=== PATIENT | male | born 1945 | race Native Hawaiian/Other Pacific Islander ===

== ENCOUNTER 2016-11-04 11:55 | Emergency (ER) | payer OTHER, MEDICARE ==
[~2016-11-04] VITALS: Ht 182.9 cm; Wt 77.1 kg
[~2016-11-04 11:55] MED LIST: ACIPHEX20 MG PO; ALBU90AE13 INH; CHONDROITIN PO; CINNAMON500 M1 PO; CLONIDINE0.3 MG PO; DIOVAN HC1 PO; FISH OIL1000 M2 PO; FLAXSEED OIL1200 MG PO; FLUTMIS14 INH; FORTAMET1000 MG PO; GARLIC1000 MG PO; GLUCOSAMINE PO; MINO10TA PO; SINGULAIR10 MG PO; SPIRIVA IN; VICTOZA18 MG/3 ML SC
[2016-11-04 13:01] LABS: PLATELET COUNT 349 K/uL (142-355)
[2016-11-04 13:12] LABS: POTASSIUM 3.9 mmol/L (3.6-5.2); SODIUM 130 mmol/L (136-145)
[2016-11-04 14:09] VITALS: BP 112/69; TEMP 98
== END 2016-11-04 14:09 | disposition home or self-care (01) ==
LOC: ED 11:55
DX: J44.9 Chronic obstructive pulmonary disease, unspecified (principal); I10 Essential (primary) hypertension
CPT/HCPCS: 80053; 85027; 93005; 99283

== ENCOUNTER 2016-12-10 12:58 | Outpatient (CLI) | payer OTHER, MEDICARE ==
[2016-12-10 14:00] LABS: POTASSIUM 4.2 mmol/L (3.6-5.2); SODIUM 130 mmol/L (136-145)
[2016-12-10 14:22] LABS: PLATELET COUNT 371 K/uL (142-355)
== END 2016-12-10 14:00 | disposition home or self-care (01) ==
LOC: LAB 12:58
PROVIDERS: Nurse Practitioner Family
DX: E11.9 Type 2 diabetes mellitus without complications (principal); I10 Essential (primary) hypertension
CPT/HCPCS: 80053; 80061; 83036; 84439; 84443; 85027

== ENCOUNTER 2017-01-14 14:05 | Outpatient (CLI) | payer OTHER, MEDICARE ==
[2017-01-14 14:34] LABS: POTASSIUM 4.9 mmol/L (3.6-5.2); SODIUM 129 mmol/L (136-145)
== END 2017-01-14 15:05 | disposition home or self-care (01) ==
LOC: LAB 14:05
PROVIDERS: Nurse Practitioner Family
DX: E87.1 Hypo-osmolality and hyponatremia (principal); E11.9 Type 2 diabetes mellitus without complications
CPT/HCPCS: 80048

== ENCOUNTER 2017-01-26 16:25 | Emergency (ER) | payer OTHER, MEDICARE ==
[~2017-01-26] VITALS: Ht 182.9 cm; Wt 74.8 kg
[2017-01-26 16:30] VITALS: TEMP 99.3
[2017-01-26 17:33] LABS: PLATELET COUNT 284 K/uL (142-355)
[2017-01-26 17:36] LABS: POTASSIUM 4.8 mmol/L (3.6-5.2); SODIUM 128 mmol/L (136-145)
[2017-01-26 18:11] VITALS: BP 125/80
== END 2017-01-26 18:28 | disposition home or self-care (01) ==
LOC: ED 16:25
DX: L03.116 Cellulitis of left lower limb (principal)
CPT/HCPCS: 36415; 80053; 85027; 96372; 99283; J0696

== ENCOUNTER 2017-05-14 13:48 | Outpatient (CLI) | payer OTHER, MEDICARE ==
[2017-05-14 14:17] LABS: PLATELET COUNT 337 K/uL (142-355)
[2017-05-14 14:36] LABS: POTASSIUM 4.1 mmol/L (3.6-5.2); SODIUM 132 mmol/L (136-145)
== END 2017-05-14 19:10 | disposition home or self-care (01) ==
LOC: LAB 13:48
PROVIDERS: Nurse Practitioner Family
DX: I73.89 Other specified peripheral vascular diseases (principal); I10 Essential (primary) hypertension; E87.1 Hypo-osmolality and hyponatremia; E11.9 Type 2 diabetes mellitus without complications; E55.9 Vitamin D deficiency, unspecified; Z79.899 Other long term (current) drug therapy; Z51.81 Encounter for therapeutic drug level monitoring
CPT/HCPCS: 80053; 80061; 82306; 82607; 83036; 84436; 84443; 85027

== ENCOUNTER 2017-05-26 23:27 | Emergency (ER) | payer OTHER, MEDICARE ==
[~2017-05-26] VITALS: Ht 182.9 cm; Wt 75.8 kg
[2017-05-27 01:10] VITALS: BP 112/71; TEMP 98.7
== END 2017-05-27 01:10 | disposition home or self-care (01) ==
LOC: ED 23:27
DX: R03.0 Elevated blood-pressure reading, without diagnosis of hypertension (principal)

== ENCOUNTER 2017-12-17 13:51 | Outpatient (CLI) | payer OTHER, MEDICARE ==
[2017-12-17 14:36] LABS: POTASSIUM 4.3 mmol/L (3.6-5.2)
[2017-12-17 14:43] LABS: PLATELET COUNT 332 K/uL (142-355)
== END 2017-12-17 18:18 | disposition home or self-care (01) ==
LOC: LAB 13:51
PROVIDERS: Nurse Practitioner Family
DX: I10 Essential (primary) hypertension (principal); I73.89 Other specified peripheral vascular diseases; R06.02 Shortness of breath; J44.9 Chronic obstructive pulmonary disease, unspecified; Z79.899 Other long term (current) drug therapy; Z51.81 Encounter for therapeutic drug level monitoring; E11.9 Type 2 diabetes mellitus without complications
CPT/HCPCS: 80053; 80061; 82306; 82607; 83036; 84436; 84443; 85027

== ENCOUNTER 2018-05-01 18:05 | Outpatient (CLI) | payer OTHER, MEDICARE ==
[2018-05-01 18:35] LABS: PLATELET COUNT 395 K/uL (142-355)
[2018-05-01 19:09] LABS: POTASSIUM 4.2 mmol/L (3.6-5.2); SODIUM 132 mmol/L (136-145)
== END 2018-05-01 22:58 | disposition home or self-care (01) ==
LOC: LAB 18:05
PROVIDERS: Nurse Practitioner Family
DX: I10 Essential (primary) hypertension (principal); I73.89 Other specified peripheral vascular diseases; E11.9 Type 2 diabetes mellitus without complications; J44.9 Chronic obstructive pulmonary disease, unspecified; Z79.899 Other long term (current) drug therapy; Z51.81 Encounter for therapeutic drug level monitoring
CPT/HCPCS: 80053; 80061; 83036; 84153; 84436; 84443; 85027

== ENCOUNTER 2018-05-12 13:51 | Outpatient (CLI) | payer OTHER, MEDICARE ==
[2018-05-12 14:25] LABS: PLATELET COUNT 376 K/uL (142-355)
[2018-05-12 14:46] LABS: POTASSIUM 4.3 mmol/L (3.6-5.2)
== END 2018-05-12 22:02 | disposition home or self-care (01) ==
LOC: LAB 13:51
PROVIDERS: Nurse Practitioner Family
DX: I10 Essential (primary) hypertension (principal); E11.9 Type 2 diabetes mellitus without complications; I73.89 Other specified peripheral vascular diseases; Z79.899 Other long term (current) drug therapy; Z51.81 Encounter for therapeutic drug level monitoring; J44.9 Chronic obstructive pulmonary disease, unspecified
CPT/HCPCS: 80053; 80061; 82306; 83036; 84154; 84436; 84443; 85027

== ENCOUNTER 2019-07-03 22:55 | Emergency (ER) | payer OTHER, MEDICARE ==
[~2019-07-03] VITALS: Ht 180.3 cm; Wt 74.8 kg
[2019-07-03 22:55] VITALS: TEMP 98.2
[2019-07-03] MEDS ORDERED: COZAAR100 MG PO (23:15)
[2019-07-03] MEDS ORDERED: POTASSIUM CHLO10 ME1 PO (23:16)
[2019-07-03] MEDS ORDERED: BREO ELLIPTA 201 INH INH (23:17)
[2019-07-03] MEDS ORDERED: TRELEGY ELLIPTA1 AER INH (23:19)
[2019-07-04 00:11] LABS: PLATELET COUNT 346 K/uL (142-355)
[2019-07-04 00:19] LABS: POTASSIUM 3.7 mmol/L (3.6-5.2)
[2019-07-04 00:50] VITALS: BP 126/79
== END 2019-07-04 00:55 | disposition home or self-care (01) ==
LOC: ED 22:55
PROVIDERS: Family Medicine
DX: I10 Essential (primary) hypertension (principal); R73.9 Hyperglycemia, unspecified
CPT/HCPCS: 36415; 80053; 81000; 85027; 99282; 99283